=== PATIENT | male | born 1960 | race Two or more races ===

== ENCOUNTER 2024-07-14 05:20 | Emergency (ER) | payer MEDICAID, OTHER ==
[~2024-07-14] VITALS: Ht 185.4 cm; Wt 108.9 kg
[2024-07-14 05:46] VITALS: TEMP 98.3
[2024-07-14 05:51] VITALS: BP 138/91; O2SAT 96
[2024-07-14] MEDS ORDERED: SULF1TAB48 PO (06:33)
[2024-07-14] MEDS ORDERED: CEPH-570 PO (06:33)
== END 2024-07-14 07:03 | disposition home or self-care (01) ==
LOC: ER 05:23
DX: L03.115 Cellulitis of right lower limb (principal); L03.116 Cellulitis of left lower limb; L98.498 Non-pressure chronic ulcer of skin of other sites with other specified severity; F17.200 Nicotine dependence, unspecified, uncomplicated; J44.9 Chronic obstructive pulmonary disease, unspecified; Z59.00 Homelessness unspecified

== ENCOUNTER 2024-09-08 11:54 | Emergency (ER) | payer MEDICAID, OTHER ==
[~2024-09-08] VITALS: Ht 182.9 cm; Wt 81.6 kg
[~2024-09-08 11:54] MED LIST: CEPH-570 PO; SULF1TAB48 PO
[2024-09-08 13:43] LABS: CALCIUM, SERUM 9.2 mg/dL (8.5-10.1); CARBON DIOXIDE 23 mmol/L (21-32); CHLORIDE 106 mmol/L (98-107); CREATININE 0.5 mg/dL (0.6-1.3); GLUCOSE 122 mg/dL (74-106); POTASSIUM 4.3 mmol/L (3.5-5.1); SODIUM SERUM 141 mmol/L (136-145); UREA NITROGEN, BLOOD 10 mg/dL (7-18)
[2024-09-08 13:48] LABS: ALANINE AMINOTRANSFERASE 11 U/L (12-78); ALBUMIN 3.3 g/dL (3.4-5.0); ALKALINE PHOSPHATASE 124 U/L (46-116); ASPARTATE AMINOTRANSFERASE 27 U/L (15-37); BILIRUBIN,DIRECT 0.1 mg/dL (0.0-0.2); BILIRUBIN,TOTAL 0.4 mg/dL (0.2-1.0)
[2024-09-08 13:52] LABS: ACETAMINOPHEN <10 ug/ml (10-30); ALCOHOL, BLOOD < 10 mg/dL (0-10); SALICYLATE < 0.2 mg/dL (2.8-20.0)
[2024-09-08] MEDS ORDERED: OLANZAPINE 10 MG VIAL IM ONE ×3 (16:00→16:29)
[2024-09-08] MEDS ORDERED: QUETIAPINE FUMARATE 100 MG TABLET ONE (16:08)
[2024-09-08] MEDS: QUETIAPINE FUMARATE 100 MG TABLET PO STA (16:12)
[2024-09-08] MEDS ORDERED: LORAZEPAM INJ 2 MG/ML VIAL ONE (16:29)
[2024-09-08] MEDS ORDERED: diphenhydrAMINE HCL 50 MG/ML VIAL ONE (16:29)
[2024-09-08] MEDS: LORAZEPAM INJ 2 MG/ML VIAL IM ONE (16:37)
[2024-09-08] MEDS: diphenhydrAMINE HCL 50 MG/ML VIAL IM ONE (16:37)
[2024-09-08] MEDS: OLANZAPINE 10 MG VIAL IM ONE (16:38)
[2024-09-08] MEDS ORDERED: HALOPERIDOL LACTATE INJ 5 MG/ML VIAL ONE (18:28)
[2024-09-08] MEDS: HALOPERIDOL LACTATE INJ 5 MG/ML VIAL IM ONE (18:33)
[2024-09-09] MEDS: OLANZAPINE 10 MG VIAL IM ONE ×2 (00:30→12:51)
[2024-09-09] MEDS ORDERED: OLANZAPINE 10 MG VIAL IM ONE ×2 (00:30→12:41)
[2024-09-09 03:10] LABS: BASOPHILS # (AUTO) 0.1 K/uL (0.0-0.2); BASOPHILS % (AUTO) 1.2 % (0.0-2.0); EOSINOPHILS # (AUTO) 0.3 K/uL (0.0-0.7); EOSINOPHILS % (AUTO) 4.6 % (0.0-6.0); HEMATOCRIT 36 % (39-51); HEMOGLOBIN 12.1 g/dL (13.5-17.5); LYMPHOCYTES # (AUTO) 1.1 K/uL (0.8-4.8); LYMPHOCYTES % (AUTO) 19.4 % (20.0-44.0); MEAN CORPUSCULAR HEMOGLOBIN 32 PG (26.0-33.0); MEAN CORPUSCULAR HGB CONC 34 g/dl (31.0-36.0); MEAN CORPUSCULAR VOLUME 94 fL (80-96); MONOCYTES # (AUTO) 0.7 K/uL (0.1-1.30); MONOCYTES % (AUTO) 12.3 % (2.0-12.0); NEUTROPHILS # (AUTO) 3.6 K/uL (1.8-8.9); NEUTROPHILS % (AUTO) 62.5 % (43.0-81.0); PLATELET COUNT (AUTO) 279 K/uL (150-450); WHITE BLOOD COUNT (AUTO) 5.8 K/uL (4.3-11.0)
[2024-09-09 04:21] LABS: APPEARANCE,URINE CLEAR (CLEAR); BILIRUBIN,URINE NEGATIVE (NEGATIVE); BLOOD, URINE NEGATIVE Ery/uL (NEGATIVE); COLOR,URINE YELLOW (YELLOW); KETONES,URINE NEGATIVE (NEGATIVE); LEUKOCYTE ESTERASE ,URINE NEGATIVE (NEGATIVE); NITRITE, URINE NEGATIVE (NEGATIVE); PROTEIN,URINE NEGATIVE (NEGATIVE); UGLUCOSE NEGATIVE (NEGATIVE); UROBILINOGEN,URINE 0.2 EU/dL (0.2)
[2024-09-09 04:39] LABS: AMPHETAMINE, URINE NEGATIVE (NEGATIVE); BARBITURATE, URINE NEGATIVE (NEGATIVE); BENZODIAZEPINE, URINE NEGATIVE (NEGATIVE); CANNABINOID, URINE NEGATIVE (NEGATIVE); COCCAINE, URINE NEGATIVE (NEGATIVE); OPIATE, URINE NEGATIVE (NEGATIVE); PHENCYCLIDINE SCREEN,URINE NEGATIVE (NEGATIVE)
[2024-09-09] MEDS ORDERED: LORAZEPAM INJ 2 MG/ML VIAL ONE (12:41)
[2024-09-09] MEDS: LORAZEPAM INJ 2 MG/ML VIAL IM ONE (12:50)
[2024-09-09] MEDS: QUETIAPINE FUMARATE 100 MG TABLET PO SCH (14:29)
[2024-09-09 15:00] VITALS: BP 139/78; TEMP 98.3; O2SAT 98
== END 2024-09-09 17:16 ==
LOC: ER 11:56
DX: S82.832A Other fracture of upper and lower end of left fibula, initial encounter for closed fracture (principal); F23 Brief psychotic disorder; F17.200 Nicotine dependence, unspecified, uncomplicated; G89.29 Other chronic pain; J44.9 Chronic obstructive pulmonary disease, unspecified; Z59.00 Homelessness unspecified; Z20.822 Contact with and (suspected) exposure to COVID-19; X58.XXXA Exposure to other specified factors, initial encounter; Y93.89 Activity, other specified; Y92.89 Other specified places as the place of occurrence of the external cause; Y99.8 Other external cause status
CPT/HCPCS: 99291; 96372 ×2; 73590; 73110; 80048; 80076; 36415; 87426; 80143; 80320; 80307; 85025; 81003; J2060 ×2; J1200; J1630; J3490 ×3; G0480

== ENCOUNTER 2024-10-04 22:39 | Emergency (ER) | payer OTHER ==
[~2024-10-04] VITALS: Ht 190.5 cm; Wt 90.7 kg
[2024-10-05] MEDS ORDERED: KETOROLAC TROMETHAMINE INJ 30 MG/ML VIAL ONE (03:56)
[2024-10-05] MEDS: KETOROLAC TROMETHAMINE INJ 30 MG/ML VIAL IM ONE (04:09)
[2024-10-05] MEDS ORDERED: NAPR-1009 PO (04:14)
[2024-10-05 04:31] VITALS: BP 141/71; TEMP 98.2; O2SAT 97
[2024-10-05 05:12] LABS: BARBITURATE, URINE NEGATIVE (NEGATIVE); BENZODIAZEPINE, URINE NEGATIVE (NEGATIVE); CANNABINOID, URINE NEGATIVE (NEGATIVE); COCCAINE, URINE NEGATIVE (NEGATIVE); OPIATE, URINE NEGATIVE (NEGATIVE); PHENCYCLIDINE SCREEN,URINE NEGATIVE (NEGATIVE)
[2024-10-05 05:20] LABS: APPEARANCE,URINE CLEAR (CLEAR); BILIRUBIN,URINE 1+ (NEGATIVE); BLOOD, URINE 1+ Ery/uL (NEGATIVE); COLOR,URINE YELLOW (YELLOW); KETONES,URINE TRACE mg/dL (NEGATIVE); LEUKOCYTE ESTERASE ,URINE NEGATIVE (NEGATIVE); NITRITE, URINE NEGATIVE (NEGATIVE); PH,URINE 5.5 (5.0-8.0); PROTEIN,URINE 1+ mg/dl (NEGATIVE); UGLUCOSE NEGATIVE (NEGATIVE); UROBILINOGEN,URINE 0.2 EU/dL (0.2)
[2024-10-05 05:26] LABS: AMPHETAMINE, URINE POSITIVE (NEGATIVE)
[2024-10-05 05:44] LABS: ADD URINE CULTURE YES; BACTERIA,URINE Many /HPF (None Seen); SQUAMOUS EPITHELIAL CELL,UR Few /HPF (None Seen)
[2024-10-05 05:45] LABS: MUCUS,URINE Many /LPF (None Seen)
== END 2024-10-05 04:32 | disposition home or self-care (01) ==
LOC: ER 22:40
DX: M54.42 Lumbago with sciatica, left side (principal); F17.200 Nicotine dependence, unspecified, uncomplicated; G89.29 Other chronic pain; J44.9 Chronic obstructive pulmonary disease, unspecified; Z59.00 Homelessness unspecified; Z88.8 Allergy status to other drugs, medicaments and biological substances
CPT/HCPCS: 99283; 96372; 80307; 81001; J1885